=== PATIENT | female | born 1955 | race Caucasian/White ===

== ENCOUNTER 2022-06-28 11:34 | Outpatient (CLI) | payer MEDICARE, BC, SELFPAY ==
[2022-06-28 23:33] LABS: Ferritin* 98.1 ng/mL (11.1-264.0)
== END 2022-06-28 11:35 | disposition home or self-care (01) ==
PROVIDERS: PCP Emergency Medicine; Visit Provider Emergency Medicine
DX: L65.9 Nonscarring hair loss, unspecified (principal); Z12.11 Encounter for screening for malignant neoplasm of colon
CPT/HCPCS: 82728; 84443

== ENCOUNTER 2023-07-03 14:06 | Outpatient (CLI) | payer MEDICARE, BC, SELFPAY | END 2023-07-03 14:07 | disposition home or self-care (01) | PROVIDERS: PCP Emergency Medicine; Visit Provider Emergency Medicine | DX: E78.2 Mixed hyperlipidemia (principal); Z13.1 Encounter for screening for diabetes mellitus | CPT/HCPCS: 80053; 80061 ==

== ENCOUNTER 2023-08-07 09:28 | Outpatient (CLI) | payer MEDICARE, BC, SELFPAY ==
--- NOTE | 2023-08-07 10:15 | CRLHL7_ITS ---
For Patients: As a result of the Cures Act, medical imaging exams and procedure reports are released immediately into your electronic medical record. You may view this report before your referring provider. If you have questions, please contact your health care provider. BILATERAL SCREENING MAMMOGRAM WITH COMPUTER-AIDED DETECTION AND TOMOSYNTHESIS TECHNIQUE: CC and MLO views were obtained. These mammographic images have been obtained using full-field digital technique. These mammographic images were interpreted with the benefit of computer-aided detection. Breast Tomosynthesis was used in this interpretation. COMPARISON FILM: 12/18/21, 11/24/20, 04/26/20. FINDINGS: There are scattered areas of fibroglandular density IMPRESSION: There is no radiographic evidence for malignancy. ASSESSMENT: BI-RADS Category 2: Benign RECOMMENDATION: Routine screening mammogram in 1 year. A lay language report of this examination will be provided to the patient. SHERIF FRANKLIN M.D. Diagnostic/Nuclear Medicine Radiologist [email or web address] [place] Transcribed: 3:23 p.mMayur motta/Dictated by: Sherif Franklin MD @ 08/08/2023 8:30:00 AM (Electronically Signed)
== END 2023-08-07 09:29 | disposition home or self-care (01) ==
LOC: MAMMO 09:30
PROVIDERS: PCP Emergency Medicine; Visit Provider Emergency Medicine
DX: Z12.31 Encounter for screening mammogram for malignant neoplasm of breast (principal)
CPT/HCPCS: 77063; 77067

== ENCOUNTER 2023-09-25 11:30 | Outpatient (CLI) | payer MEDICARE, BC, SELFPAY | END 2023-09-25 11:31 | disposition home or self-care (01) | PROVIDERS: PCP Emergency Medicine; Visit Provider Emergency Medicine | DX: M54.50 Low back pain, unspecified (principal); E78.5 Hyperlipidemia, unspecified; Z13.1 Encounter for screening for diabetes mellitus | CPT/HCPCS: 80061; 86140 ==

== ENCOUNTER 2023-10-24 13:45 | Outpatient (RCR) | payer MEDICARE, BC, SELFPAY ==
--- NOTE | 2023-10-02 12:11 | PT.OPE ---
PT [place] [facility] Eval PT [facility] Outpatient Eval Start: 10/01/23 14:12 Freq: Status: Active Protocol: Document 10/02/23 10:38 LSL (Rec: 10/02/23 11:51 LSL [id number]) E-signed By Kenyatta Beard PT Physical Therapy Outpatient Evaluation Insurance Information Insurance Name Medicare B,[employer] Medical Diagnosis lumbar pain Referring MD [place] Subjective Subjective Pt. reports she's been having upper low back pain for about a year and it just depends on what I am doing as to how much it hurts. Pt. has a constant low grade dull pain and then when something triggers it, it is an extremely sharp. Pain is central. Denies radicular pain. Pt. has a neurostimulator for interstitial cystitis that was placed in the . When pain is sharp it can last 30 seconds to 5 minutes and then stays elevated as an ache. If I'm walking on an uneven surface, or hit a bump while driving, rotate quickly or get an unexpected hug I get a horrible hit of pain. The duller pain will respond to heat. PMH - head tremors for years, Von Willabrand's disease Pain Comments 0-2/10 best, 10/10 worst Date of Last Physician Visit 09/25/23 Current Work Status Retired Precautions Treatment Precautions/Contraindications NO ESTIM - neurostim implant Weight Bearing Status Full Weight Bearing Therapy Limitations/Systems Review Not Limited Objective Range of Motion AROM - lumbar flexion 95% with pain worse on extension, B LF WFL with pain moving L>R, B rotation 30#, extension 25% with sharp pain PROM - SKC B WNL, DKC WNL with R hip pain anteriorly, Strength LE - B DF 5/5, B quads and HS 5/5, R hip ER 4+/5, L 5/5, B hip IR 5/5, R hip flexion 4+/5 with hip pain, L hip 5/5, B hip extension 5/5 Trunk - upper abdominals deferred due to significant pain upon laying down, lower abdominals 2/5, extensors 3/5 Palpation tight throughout L-S reason in both muscles and fascia, fascia especially through L3- S1 Posture decreased spinal curves in lumbar and thoracic spine with mild scoliosis Sensation/Reflexes B SLR negative with HS tightness Reflexes - B patellar and achilles intact Other/Pertinent Objective Joint Play - L1-L4 PA and UPA tight and painful throughout, L5 UPA intact Assessment Primary Functional Limitations turning, bending, lifting, driving, unexpected impact Plan of Care Rehabilitation Potential Good Physical Therapy Goals SHORT TERM GOALS: (4 weeks) 1. Pt. able to utilize TA brace for stabilization in transitional movement and decrease pain to less than 3/ 10. 2. Pt. to report decreased incidents of sharp pain when doing mobilization exercises to less than 1x/day. 3. Pt. able to hug grandchildren without incidents of sharp pain. SENIOR LIVING GOALS: (8 weeks) 1. Pt. to report decreased incidents of sharp pain when hitting a bump in the road to less than 1x/week. 2. Pt. able to move through lumbar ROM with less hesitancy and fear. 3. Pt. able to complete transition from standing to/ from supine with pain less than 3/10. Coordination/Communication With Referral Source Treatment Plan/Direct Interventions Heat,Joint Mobilization,Manual Therapy,Neuromuscular Re-ed, Self-Care/Home Management, Therapeutic Exercises Frequency/Duration 2x/week 8 weeks Patient Will Be Discharged From Therapy Completion of LTG(s),Skills Plateau,Independent w/HEP, Independently Progressing Evaluation Billing Untimed Code Treatment Minutes 35 Complexity Moderate Certification Information Initial Certification Date 10/02/23 Ending Certification Date 12/31/23 Provider Signature Shows Agreement With POC & Medical Necessity Physician Signature & Date Requested Please Sign/Date Here Physician Comment/Change : Physician NPI Number #
== END 2024-02-21 23:59 | disposition home or self-care (01) ==
PROVIDERS: PCP Emergency Medicine; Visit Provider Emergency Medicine
DX: M54.50 Low back pain, unspecified (principal); Z51.89 Encounter for other specified aftercare
CPT/HCPCS: 97012; 97110; 97140; 97162; 97535

== ENCOUNTER 2023-10-31 13:41 | Outpatient (CLI) | payer MEDICARE, BC, SELFPAY ==
--- NOTE | 2023-10-31 14:00 | CT_ITS ---
Patient: EMERSON SHERIDAN Facility:?[facility] Patient ID:?[id number] Site Patient ID:?[id number]. Site :?[id number] Study:?CT-Spine Lumbar WO-10/31/2023 2:13:07 PM Ordering Physician:GERARD Final Report: INDICATION: Low back pain. TECHNIQUE: Noncontrast axial CT of the lumbar spine with coronal/sagittal 3D reformats are provided. No comparisons. FINDINGS: Minimal degenerative retrolisthesis of L5 on S1. Chronic degenerative endplate sclerosis at L5-S1 level. Remainder lumbar spine demonstrates normal overall stature and alignment. L1-2: Unremarkable. L2-3: Mild to moderate bilateral facet arthropathy is minor circumferential disk bulge results in no central canal or foraminal narrowing. L3-4: Mild circumferential disk bulge with [id number] bilateral facet arthropathy results in mild central canal and left foraminal narrowing. No right foraminal narrowing. L5-S1: Mild broad-based posterior disc bulge with mild to moderate bilateral facet arthropathy and ligamentum flavum laxity results in moderate to severe central canal narrowing. Neural foramina appear patent. L5-S1: Mild circumferential disk bulge and endplate osteophyte results in moderate bilateral foraminal narrowing with no central canal narrowing. IMPRESSION: 1. Moderate to severe L4-5 central canal narrowing. 2. Moderate bilateral L5-S1 foraminal narrowing. 3. Milder degenerative changes within the remainder of the lumbar spine as outlined above. Please note that all CT scans at this facility use dose modulation, iterative reconstruction, and/or weight-based dosing when appropriate to reduce radiation dose to as low as reasonably achievable. Dictated by Hilario Gilbert MD @ 11/03/2023 6:49:50 PM Signed by:?Hilario Gilbert MD @11/03/2023 6:49:50 PM (Electronic Signature)
--- NOTE | 2023-10-31 14:30 | XR_ITS ---
Patient: EMERSON SHERIDAN Facility:?[facility] Patient ID:?[id number] Site Patient ID:?[id number]. Site :?[id number] Study:?DEXA-Bone Density -10/31/2023 2:53:43 PM Ordering Physician:GERARD Final Report: DXA BONE MINERAL DENSITY STUDY Reason for exam: Postmenopausal. Current height (in): 66.0 Weight (lb): 170.0 Menopause age: 40 Ethnicity: White. 1. Have you had a previous hip or vertebral fracture? No. 2. Have you had any fractures during your adult life which did not result from significant trauma (e.g., auto accident)? No. 3. Did either of your parents have a hip fracture? No. 4. Do you smoke? No. 5. Have you ever taken Glucocorticoids? No. 6. Do you have rheumatoid arthritis? No. 7. Do you have secondary osteoporosis? No. 8. Do you drink 3 or more alcoholic drinks per day? No. 9. Are you being treated for osteoporosis? No. 10. Have you ever taken any of the following medications: Actonel, Evista, Fosamax, Miacalcin, Reclast, Boniva, Forteo, HRT (i.e. estrogen/hormone therapy), Protelos, Prolia, Vitamin D, Calcium, other ? please specify. ANSWER: Yes, Vitamin D, calcium. 11. Do you have any of the following medical conditions: Anorexia or bulimia, asthma or emphysema, end stage renal disease, hyperparathyroidism, any seizure disorders, cancer, inflammatory bowel diseases, hysterectomy, other ? please specify. ANSWER: Yes, Hysterectomy. 12. What was your maximum height (inches)? 66.5 13. Do you perform weight bearing exercise regularly? Yes. 14. Do you regularly consume dairy products? Yes. 15. Do you drink caffeinated beverages? Yes. 16. At what age did your period start? 13 17. Are you premenopausal? No. 18. How many full term pregnancies have you had? 1 19. Have you ever missed your period for more than 6 months in a row (not including or menopause)? No. TECHNIQUE: Bone mineral density study was performed using the [email or web address]. FINDINGS: The results of the study expressed as bone mineral density (BMD) are as follows: Lumbar spine L1 to L3: BMD: 0.905 g/cm2. T-score: -1.0. Z-score: 0.8. Neck Left: BMD: 0.643 g/cm2. T-score: -1.9. Z-score: -0.3. Right: BMD: 0.708 g/cm2. T-score: -1.3. Z-score: 0.3. Total Left: BMD: 0.819 g/cm2. T-score: -1.0. Z-score: 0.3. Right: BMD: 0.859 g/cm2. T-score: -0.7. Z-score: 0.6. IMPRESSION: Osteopenia. *Comparison exams done prior to 12/2019 were performed on different unit, [employer]. FRAX RIGHT: 10-year Fracture Risk Major Osteoporotic Fracture: 8.6 percent Hip Fracture: 0.8 percent Reported Risk Factors: [place] () Neck BMD=0.708, BMI=27.4 LEFT: 10-year Fracture Risk Major Osteoporotic Fracture: 10 percent Hip Fracture: 1.5 percent Reported Risk Factors: [place] () Neck BMD=0.643, BMI=27.4 Renny Jackson M.D. Diagnostic Radiologist [email or web address] [email or web address] & Transcribed: 10:35 a.m. PT/Dictated by: Renny Jackson MD @ 11/01/2023 1:39:00 PM Signed by:?Renny Jackson MD @11/05/2023 12:27:13 PM (Electronic Signature)
== END 2023-10-31 13:42 | disposition home or self-care (01) ==
PROVIDERS: PCP Emergency Medicine; Visit Provider Emergency Medicine
DX: M54.50 Low back pain, unspecified (principal); M51.26 Other intervertebral disc displacement, lumbar region; M51.27 Other intervertebral disc displacement, lumbosacral region; Z78.0 Asymptomatic menopausal state
CPT/HCPCS: 72131; 77080

== ENCOUNTER 2024-08-12 13:20 | Outpatient (CLI) | payer MEDICARE, BC, SELFPAY | END 2024-08-12 13:21 | disposition home or self-care (01) | PROVIDERS: PCP Emergency Medicine; Visit Provider Emergency Medicine | DX: I10 Essential (primary) hypertension (principal); E78.2 Mixed hyperlipidemia; D68.021 Von Willebrand disease, type 2B | CPT/HCPCS: 80048; 80061; 82728 ==

== ENCOUNTER 2024-09-15 14:15 | Outpatient (CLI) | payer MEDICARE, BC, SELFPAY | END 2024-09-15 14:16 | disposition home or self-care (01) | LOC: LKVREF 14:16 | PROVIDERS: PCP Emergency Medicine; Visit Provider Emergency Medicine | DX: R07.9 Chest pain, unspecified (principal) | CPT/HCPCS: 86140 ==

== ENCOUNTER 2024-11-13 14:15 | Outpatient (CLI) | payer MEDICARE, BC, SELFPAY | END 2024-11-13 14:16 | disposition home or self-care (01) | LOC: NFLDREF 11-17 18:54 | PROVIDERS: PCP Emergency Medicine; Referring Provider Emergency Medicine; Visit Provider Physician Assistant | DX: N39.0 Urinary tract infection, site not specified (principal) | CPT/HCPCS: 87086 ==

== ENCOUNTER 2025-02-23 12:25 | Outpatient (CLI) | payer MEDICARE, BC, SELFPAY ==
--- NOTE | 2025-02-23 13:00 | CRLHL7_ITS ---
For Patients: As a result of the Century Cures Act, medical imaging exams and procedure reports are released immediately into your electronic medical record. You may view this report before your referring provider. If you have questions, please contact your health care provider. INDICATION: BILATERAL SCREENING MAMMOGRAM, ASYMPTOMATIC 70 Y/O FEMALE COMPARISON: 08/07/2023, 12/18/2021, 11/15/2020 TECHNIQUE: Digital mammogram in CC and MLO projections including computer-aided detection (CAD) and tomosynthesis. BREAST COMPOSITION: There are scattered areas of fibroglandular density. FINDINGS: No suspicious findings. ASSESSMENT: BI-RADS 1 Negative RECOMMENDATION: Annual screening mammogram. A lay language report of this examination will be provided to the patient. Dictated by: Dina Lira MD @ 02/24/2025 10:16:36 (Electronically Signed)
== END 2025-02-23 12:26 | disposition home or self-care (01) ==
LOC: MAMMO 12:26
PROVIDERS: PCP Emergency Medicine; Visit Provider Emergency Medicine
DX: Z12.31 Encounter for screening mammogram for malignant neoplasm of breast (principal)
CPT/HCPCS: 77063; 77067

== ENCOUNTER 2025-06-22 14:25 | Outpatient (CLI) | payer MEDICARE, BC, SELFPAY | END 2025-06-22 14:26 | disposition home or self-care (01) | LOC: LKVREF 14:25 | PROVIDERS: Visit Provider Family Medicine | DX: Z01.818 Encounter for other preprocedural examination (principal) | CPT/HCPCS: 80048 ==